=== PATIENT | female | born 1940 | race Caucasian/White ===

== ENCOUNTER 2017-03-30 17:45 | Inpatient (IN) | payer MEDICARE, MEDICAID ==
[~2017-03-30] VITALS: Ht 154.9 cm; Wt 46.3 kg
--- NOTE | 2017-03-30 18:02 | NUR ---
PT IS IN BED IN HALLWAY. NO AVAILABLE BEDS IN ROOMS. DR MCGEE NOTIFIED ABOUT PT's COMPLAINES.
[2017-03-30] MEDS ORDERED: IV NORMAL SALINE 1000 ML BAG IV ONE (18:15)
[2017-03-30] MEDS ORDERED: AMMO385C4 TP (18:42)
[2017-03-30] MEDS ORDERED: ALLO300T72 PO (18:42)
[2017-03-30] MEDS ORDERED: ATOR20TA PO (18:42)
[2017-03-30] MEDS ORDERED: [UNRECOGNIZED DRUG - CODE] PO (18:42)
[2017-03-30] MEDS ORDERED: TRAM50TA2 PO (18:42)
[2017-03-30] MEDS ORDERED: FURO-152 PO (18:42)
[2017-03-30] MEDS ORDERED: ASPI81TA31 PO (18:42)
[2017-03-30] MEDS ORDERED: APIX2.5T PO (18:42)
[2017-03-30] MEDS ORDERED: BISA10SU12 RC (18:42)
[2017-03-30] MEDS ORDERED: ACET325T53 PO (18:42)
[2017-03-30] MEDS ORDERED: MULT-213 PO (18:42)
[2017-03-30] MEDS ORDERED: HYDR-3326 PO (18:42)
[2017-03-30] MEDS ORDERED: DOCU100C36 PO (18:42)
[2017-03-30] MEDS ORDERED: ASCO500T9 PO (18:42)
[2017-03-30] MEDS ORDERED: ZINC220C8 PO (18:42)
[2017-03-30] MEDS ORDERED: NA P133E RC (18:42)
[2017-03-30] MEDS ORDERED: MAGN400O6 PO (18:42)
[2017-03-30] MEDS ORDERED: TOLT2TAB2 PO (18:42)
[2017-03-30] MEDS ORDERED: BLOO-140 IN (18:42)
[2017-03-30] MEDS ORDERED: LACT1TAB14 PO (18:42)
[2017-03-30] MEDS ORDERED: DILT120C11 PO (18:42)
[2017-03-30] MEDS ORDERED: PIPE2.259 IV (18:42)
[2017-03-30] MEDS ORDERED: INSU3INS6 SQ (18:42)
[2017-03-30] MEDS ORDERED: NYST15CR TP (18:42)
[2017-03-30] MEDS ORDERED: SENN-167 PO (18:42)
[2017-03-30] MEDS ORDERED: LEVO25TA9 PO (18:42)
--- NOTE | 2017-03-30 18:48 | NUR ---
DR MERRILL AT THE BEDSIDE FOR EVAL AND EXAM.
[2017-03-30 18:56] LABS: CARBON DIOXIDE 30 mmol/L (21-32); CHLORIDE 104 mmol/L (98-107); CREATININE 1.4 mg/dL (0.6-1.3); GLUCOSE 197 mg/dL (74-106); POTASSIUM 3.4 mmol/L (3.5-5.1); UREA NITROGEN, BLOOD 20 mg/dL (7-18)
[2017-03-30 18:57] LABS: BASOPHILS % (AUTO) 0.3 % (0.0-2.0); EOSINOPHILS % (AUTO) 0.5 % (0.0-7.0); MONOCYTES # (AUTO) 0.4 K/uL (2.0-10.0)
[2017-03-30 19:02] LABS: ALANINE AMINOTRANSFERASE 16 U/L (14-59); ALKALINE PHOSPHATASE 234 U/L (50-136); ASPARTATE AMINOTRANSFERASE 19 U/L (15-37); BILIRUBIN,DIRECT 0.3 mg/dL (0.0-0.2); BILIRUBIN,TOTAL 0.6 mg/dL (0.2-1.0); TOTAL PROTEIN, SERUM 5.1 g/dL (6.4-8.2)
[2017-03-30 19:04] LABS: HEMATOCRIT 21.1 % (31.2-41.9); LYMPHOCYTES # (AUTO) 0.7 K/uL (20.0-40.0); LYMPHOCYTES % (AUTO) 9.6 % (20.5-51.5); MEAN CORPUSCULAR HEMOGLOBIN 30.8 uug (24.7-32.8); MEAN CORPUSCULAR HGB CONC 33 g/dL (32.3-35.6); MEAN CORPUSCULAR VOLUME 93.2 fL (75.5-95.3); MONOCYTES % (AUTO) 5.4 % (0.0-11.0); NEUTROPHILS # (AUTO) 6.1 K/uL (1.8-8.9); NEUTROPHILS % (AUTO) 84.2 % (38.5-71.5); PLATELET COUNT (AUTO) 190 K/uL (179-408); WHITE BLOOD COUNT (AUTO) 7.3 K/uL (3.8-11.8)
[2017-03-30 19:11] LABS: RED BLOOD CELL COUNT(AUTO) 2.26 MIL/uL (3.63-4.92)
[2017-03-30 19:39] LABS: BAND % (MANUAL) 11 % (0-10); EOSINOPHILS % (MANUAL) 2 % (0-8); LYMPHOCYTES % (MANUAL) 8 % (20-40); MONOCYTES % (MANUAL) 5 % (2-10); NEUTROPHILS % (MANUAL) 74 % (42-75)
--- NOTE | 2017-03-30 20:55 | NUR ---
Marco paged for Dr. Spann
[2017-03-30] MEDS ORDERED: ONDANSETRON 4 MG/2 ML VIAL IV PRN (21:15)
[2017-03-30] MEDS ORDERED: MORPHINE SULFATE 2 MG/1 ML DISP.SYRIN IV PRN (21:15)
[2017-03-30] MEDS ORDERED: POTASSIUM CHLORIDE 20 MEQ in IV D5/ 0.9% NACL 1,000 ML IV PRN (21:15)
--- NOTE | 2017-03-30 23:00 | NUR ---
Pt. admitted to TELE , under care of Dr. DUMONT Belongs List completed.
--- NOTE | 2017-03-30 23:30 | NUR ---
PATIENT ADMITTED IN TELE UNIT UNDER THE CARE OF DR DUMONT, INVENTORY LIST DONE.
[2017-03-31] VITALS (13 sets, daily range): BP systolic 95–108; BP diastolic 35–80
--- NOTE | 2017-03-31 | NUR ---
Pt is in no acute distress. Noted redness on upper inner thigh surgical site from pop bypass. with dominguez intact. Call light is within reach. Addendum: 04/01/17 at 0559 by DEISI DONALDSON RN wrong time
--- NOTE | 2017-03-31 06:00 | NUR ---
PATIENT ALERT ORIENTED, ABLE TO MAKE NEEDS KNOWN, ABLE TO GIVE CONSENT FOR EGD AND BLOOD TRANSFUSION, RHYTHM SINUS RHYTHM, HAD TWO BM WITH BLOOD IN MODERATE AMOUNT MD AWARE OF THE CONDITION. CONT TO MONITOR NO SOB NO CHEST PAIN NOTED.
--- NOTE | 2017-03-31 07:02 | NUR ---
PATIENT STARTED BLOOD TRANSFUSION ORDER BY DR HANNAH, WITH NO ADVERSE REACTION NOTED. ENDORSED TO NEXT SHIFT.
[2017-03-31 07:06] LABS: BASOPHILS % (AUTO) 0.3 % (0.0-2.0); EOSINOPHILS # (AUTO) 0.1 K/uL (0.0-0.7); EOSINOPHILS % (AUTO) 1.3 % (0.0-7.0); LYMPHOCYTES # (AUTO) 1.1 K/uL (20.0-40.0); LYMPHOCYTES % (AUTO) 19.7 % (20.5-51.5); MEAN CORPUSCULAR HEMOGLOBIN 30.3 uug (24.7-32.8); MEAN CORPUSCULAR HGB CONC 32 g/dL (32.3-35.6); MEAN CORPUSCULAR VOLUME 93.5 fL (75.5-95.3); MONOCYTES # (AUTO) 0.4 K/uL (2.0-10.0); MONOCYTES % (AUTO) 6.8 % (0.0-11.0); NEUTROPHILS # (AUTO) 3.9 K/uL (1.8-8.9); NEUTROPHILS % (AUTO) 71.9 % (38.5-71.5); PLATELET COUNT (AUTO) 175 K/uL (179-408)
[2017-03-31 07:10] LABS: IRON, SERUM 26 ug/dL (50-175)
[2017-03-31 07:12] LABS: ALANINE AMINOTRANSFERASE 14 U/L (14-59); ALKALINE PHOSPHATASE 182 U/L (50-136); ASPARTATE AMINOTRANSFERASE 14 U/L (15-37); BILIRUBIN,TOTAL 0.5 mg/dL (0.2-1.0); CARBON DIOXIDE 29 mmol/L (21-32); CHLORIDE 109 mmol/L (98-107); CHOLESTEROL 82 mg/dL (<200); CREATININE 1.2 mg/dL (0.6-1.3); GLUCOSE 181 mg/dL (74-106); HDL CHOLESTEROL 42 mg/dL (40-60); MAGNESIUM 1.6 mg/dL (1.8-2.4); PHOSPHOROUS 2.2 mg/dL (2.5-4.9); POTASSIUM 3.2 mmol/L (3.5-5.1); TOTAL PROTEIN, SERUM 4.6 g/dL (6.4-8.2); TRIGLYCERIDES 56 MG/DL (30-150); UREA NITROGEN, BLOOD 19 mg/dL (7-18)
[2017-03-31 07:27] LABS: THYROID STIMULATING HORMONE 12.627 mIU/mL (0.358-3.740)
[2017-03-31 07:28] LABS: WHITE BLOOD COUNT (AUTO) 5.4 K/uL (3.8-11.8)
[2017-03-31 07:30] LABS: HEMOGLOBIN 5.9 g/dL (10.9-14.3)
[2017-03-31 07:31] LABS: HEMATOCRIT 18.2 % (31.2-41.9)
[2017-03-31 07:32] LABS: RED BLOOD CELL COUNT(AUTO) 1.94 MIL/uL (3.63-4.92)
[2017-03-31] MEDS ORDERED: MORPHINE SULFATE 4 MG/1 ML DISP.SYRIN IV PRN (07:45)
--- NOTE | 2017-03-31 08:41 | NUR ---
client has been taken down for procedure
[2017-03-31] MEDS ORDERED: PANTOPRAZOLE SODIUM 40 MG VIAL IV SCH (09:00)
--- NOTE | 2017-03-31 09:20 | NUR ---
this is around the time the blood trasfusion should have ended. client was downstairs for procedure
[2017-03-31] MEDS ORDERED: METOPROLOL TARTRATE 5 MG/5 ML VIAL IVP ONE (09:39)
[2017-03-31] MEDS ORDERED: FUROSEMIDE 20 MG/2 ML VIAL IV ONE (10:45)
[2017-03-31] MEDS ORDERED: AMIODARONE HCL IV 900 MG in IV DEXTROSE 5% 482 ML IV PRN (10:45)
[2017-03-31] MEDS ORDERED: AMIODARONE HCL IV 150 MG in IV DEXTROSE 5% 100 ML IV ONE (10:45)
[2017-03-31 10:51] LABS: EOSINOPHILS % (MANUAL) 2 % (0-8); LYMPHOCYTES % (MANUAL) 21 % (20-40); MONOCYTES % (MANUAL) 7 % (2-10); NEUTROPHILS % (MANUAL) 70 % (42-75)
[2017-03-31] MEDS: DILTIAZEM HCL CD 120 MG CAP.SR.24H PO SCH (11:40)
[2017-03-31] MEDS ORDERED: NEUTRA PHOS PACKET PO ONE (15:15)
[2017-03-31] MEDS ORDERED: POTASSIUM CHLORIDE 20 MEQ TAB.PRT.SR PO ONE (16:30)
[2017-03-31 19:38] LABS: *BILIRUBIN,URIN NEGATIVE (NEGATIVE); *BLOOD, URINE Trace-lysed (NEGATIVE); *CLARITY,URINE CLEAR (CLEAR); *COLOR,URINE YELLOW (YELLOW); *KETONES,URINE NEGATIVE (NEGATIVE); *PROTEIN,URINE TRACE (NEGATIVE); *UROBILINOGEN,URINE 0.2 E.U./dl (NORMAL); LEUKOCYTE ESTERASE ,URINE TRACE (NEGATIVE); NITRITE, URINE NEGATIVE (NEGATIVE); PH,URINE 5.5 (5.0-8.0); UGLUCOSE NEGATIVE (NEGATIVE)
[2017-03-31 19:41] LABS: BACTERIA,URINE FEW /HPF (NONE SEEN); RBC,URINE 0-3 /HPF (0-3); SQUAMOUS EPITHELIAL CELL,UR FEW /HPF (NONE SEEN)
--- NOTE | 2017-03-31 20:00 | NUR ---
Pt is in no acute distress. Noted redness on upper inner thigh surgical site from pop bypass. with dominguez intact. Call light is within reach. Addendum: 04/01/17 at 0600 by DEISI DONALDSON RN offered to cover surgical site with gauze - pt refused.
[2017-03-31] MEDS: PANTOPRAZOLE SODIUM 40 MG VIAL IV SCH (20:10)
--- NOTE | 2017-03-31 20:15 | NUR ---
2ND BAG OF BLOOD INFUSED, TOLERATED WELL. CLIENT IN IS NO APPARENT SIGNS AND SYMPTOMS OF SOB, DISTRESS OR DISCOMFORT, STATES NO PAIN, WISHES TO BE DISCHARGE CLOSER TO HOME. AFTER PROCEDURE CLIENT WAS PLACED ON REG DIET AFTER PROCEDURE, TOLERATED FOOD WELL. STOOL AND URINE COLLECT AND SENT DOWN TO LAB.. CLIENT HAS BE COMPLIANT THROUGHOUT THE DAY. HAS GOOD KNOWLEDGE ABOUT HER PROCEDURE AND MEDICATIONS. DAUGHTER CALLED AROUND 3PM AND A QUICK STATUES WAS GIVEN
[2017-03-31] MEDS: MAGNESIUM SULFATE/D5W 100 ML IV SCH ×2 (20:19→22:52)
[2017-03-31] MEDS ORDERED: IV NORMAL SALINE 1000 ML BAG IV ONE (22:04)
[2017-03-31] MEDS ORDERED: PROPOFOL 200 MG/20 ML BOTTLE IV ONE (22:04)
[2017-03-31] MEDS ORDERED: EPHEDRINE SULFATE 50 MG/ML AMPUL MC ONE (22:04)
[2017-03-31] MEDS ORDERED: LIDOCAINE HCL 1% 20 ML VIAL MC ONE (22:04)
[2017-03-31] MEDS: ACETAMINOPHEN 325 MG TABLET PO PRN (22:51)
[2017-04-01 04:00] VITALS: BP 99/46
--- NOTE | 2017-04-01 06:00 | NUR ---
Pt is in no acute distress. Call light is within reach. pt slept throughout the night comfortably.
--- NOTE | 2017-04-01 07:48 | NUR ---
CLIENT IS ASLEEP IN BED WITH NO APPARENT SIGNS AND SYMPTOMS OF SOB, PAIN, DISTRESS OR DISCOMFORT. SLEEPING IN A SUPINE POSITION WITH THE HOB AT 30 DEGREES TURNED TO THE RIGHT SIDE. BED AT LOWEST POSITION FOR SAFETY AND CALLING LIGHT WITHIN REACH. CLIENT NOTED WITH A DRY COUGH
[2017-04-01 07:56] LABS: BASOPHILS % (AUTO) 0.2 % (0.0-2.0); EOSINOPHILS # (AUTO) 0.1 K/uL (0.0-0.7); EOSINOPHILS % (AUTO) 1.1 % (0.0-7.0); LYMPHOCYTES # (AUTO) 1.2 K/uL (20.0-40.0); LYMPHOCYTES % (AUTO) 13.6 % (20.5-51.5); MEAN CORPUSCULAR HEMOGLOBIN 29.9 uug (24.7-32.8); MEAN CORPUSCULAR HGB CONC 33 g/dL (32.3-35.6); MEAN CORPUSCULAR VOLUME 89.7 fL (75.5-95.3); MONOCYTES # (AUTO) 0.6 K/uL (2.0-10.0); MONOCYTES % (AUTO) 7.3 % (0.0-11.0); NEUTROPHILS # (AUTO) 6.7 K/uL (1.8-8.9); NEUTROPHILS % (AUTO) 77.8 % (38.5-71.5); PLATELET COUNT (AUTO) 170 K/uL (179-408)
[2017-04-01 08:15] LABS: ALANINE AMINOTRANSFERASE 13 U/L (14-59); ALKALINE PHOSPHATASE 196 U/L (50-136); ASPARTATE AMINOTRANSFERASE 14 U/L (15-37); BILIRUBIN,TOTAL 1.2 mg/dL (0.2-1.0); CARBON DIOXIDE 25 mmol/L (21-32); CHLORIDE 106 mmol/L (98-107); CREATININE 1.5 mg/dL (0.6-1.3); GLUCOSE 196 mg/dL (74-106); MAGNESIUM 2.2 mg/dL (1.8-2.4); PHOSPHOROUS 2.6 mg/dL (2.5-4.9); POTASSIUM 4.4 mmol/L (3.5-5.1); TOTAL PROTEIN, SERUM 5.3 g/dL (6.4-8.2); UREA NITROGEN, BLOOD 23 mg/dL (7-18)
[2017-04-01 08:59] LABS: HEMATOCRIT 27.8 % (31.2-41.9); HEMOGLOBIN 9.3 g/dL (10.9-14.3); WHITE BLOOD COUNT (AUTO) 8.6 K/uL (3.8-11.8)
[2017-04-01] MEDS ORDERED: FUROSEMIDE 40 MG/4 ML VIAL IV ONE (09:30)
[2017-04-01 09:55] LABS: *OCCULT BLOOD STOOL POSITIVE (NEGATIVE)
[2017-04-01] MEDS: DILTIAZEM HCL CD 120 MG CAP.SR.24H PO SCH (10:02)
[2017-04-01] MEDS: PANTOPRAZOLE SODIUM 40 MG VIAL IV SCH ×2 (10:02→17:31)
--- NOTE | 2017-04-01 10:41 | NUR ---
ORDERS TO DC TELE
[2017-04-01 11:18] VITALS: BP 121/46
[2017-04-01 15:04] VITALS: BP 125/46
[2017-04-01] MEDS: GUAIFENESIN/DEXTROMETHORPHAN 5 ML UDC PO PRN ×2 (15:38→20:43)
[2017-04-01 19:00] VITALS: BP 116/49
--- NOTE | 2017-04-01 19:20 | NUR ---
RECEIVED PATIENT IN BED, NO SOB NO CHEST PAIN NOTED, CONTINENT OF BOWEL AND BLADDER, ASSISTED WITH TOILETING, COMPLAIN OF COUGH AND PAIN ON LEFT LEG INCISION, WILL MEDICATE FOR COUGH AND PAIN. V.S STABLE.
--- NOTE | 2017-04-01 19:36 | NUR ---
CLIENT COMPLIANT WITH ALL CARE. COUGH NOTED THROUGHOUT THE DAY WITH ORDERS FOR ROBITUSSIN. NEW IV STARTED ON THE LEFT HAND. NO APPARENT SIGNS AND SYMPTOMS OF DISTRESS. BED AT LOWEST POSITION FOR SAFETY AND CALL LIGHT WITHIN REACH FOR ASSISTANCE
[2017-04-01] MEDS: ACETAMINOPHEN 325 MG TABLET PO PRN (20:43)
[2017-04-02 04:00] VITALS: BP 120/58
--- NOTE | 2017-04-02 06:10 | NUR ---
PATIENT SLEPT MOST OF THE NIGHT, NO SOB NO CHEST PAIN, HAD ONE BROWNISH RED COLOR BM ON THIS SHIFT, NO FURTHER COMPLAIN OF PAIN NOR COUGHING NOTED, CALL LIGHT WITHIN REACH, LEFT INNER THIGH INCISION WITH VANESSA INTACT, DRY NO DRAINAGE NOTED, CONT TO MONITOR.
--- NOTE | 2017-04-02 07:33 | NUR ---
RECEIVED CLIENT IN BED ASLEEP IN BED, LAYING SUPINE TURN SLIGHTLY TO THE RIGHT SIDE. NO APPARENT SIGNS AND SYMPTOMS OF PAIN, DISTRESS OR DISCOMFORT. BED AT LOWEST POSITION FOR SAFETY AND CALL LIGHT WITHIN REACH FOR ASSISTANCE. NI IV FLUIDS RUNNING AT THIS TIME
[2017-04-02] MEDS: GUAIFENESIN/DEXTROMETHORPHAN 5 ML UDC PO PRN ×2 (09:10→17:27)
[2017-04-02] MEDS: PANTOPRAZOLE SODIUM 40 MG VIAL IV SCH ×2 (09:10→17:27)
[2017-04-02 09:12] LABS: CARBON DIOXIDE 28 mmol/L (21-32); CHLORIDE 105 mmol/L (98-107); CREATININE 1.4 mg/dL (0.6-1.3); GLUCOSE 201 mg/dL (74-106); MAGNESIUM 2.1 mg/dL (1.8-2.4); PHOSPHOROUS 2.3 mg/dL (2.5-4.9); POTASSIUM 4.6 mmol/L (3.5-5.1); UREA NITROGEN, BLOOD 19 mg/dL (7-18)
[2017-04-02] MEDS: DILTIAZEM HCL CD 120 MG CAP.SR.24H PO SCH (09:13)
[2017-04-02 10:01] LABS: BASOPHILS % (AUTO) 0.4 % (0.0-2.0); EOSINOPHILS % (AUTO) 0.1 % (0.0-7.0); HEMOGLOBIN 9.6 g/dL (10.9-14.3); LYMPHOCYTES # (AUTO) 0.3 K/uL (20.0-40.0); LYMPHOCYTES % (AUTO) 3.5 % (20.5-51.5); MEAN CORPUSCULAR HEMOGLOBIN 31.1 uug (24.7-32.8); MEAN CORPUSCULAR HGB CONC 34 g/dL (32.3-35.6); MEAN CORPUSCULAR VOLUME 91.2 fL (75.5-95.3); MONOCYTES # (AUTO) 0.4 K/uL (2.0-10.0); MONOCYTES % (AUTO) 3.8 % (0.0-11.0); NEUTROPHILS # (AUTO) 9.1 K/uL (1.8-8.9); NEUTROPHILS % (AUTO) 92.2 % (38.5-71.5); PLATELET COUNT (AUTO) 164 K/uL (179-408); RED BLOOD CELL COUNT(AUTO) 3.07 MIL/uL (3.63-4.92); WHITE BLOOD COUNT (AUTO) 9.9 K/uL (3.8-11.8)
[2017-04-02] MEDS ORDERED: NEUTRA PHOS PACKET PO ONE (11:15)
[2017-04-02 11:35] VITALS: BP 125/53
[2017-04-02 13:21] LABS: BAND % (MANUAL) 4 % (0-10); LYMPHOCYTES % (MANUAL) 3 % (20-40); MONOCYTES % (MANUAL) 6 % (2-10); NEUTROPHILS % (MANUAL) 87 % (42-75)
[2017-04-02 15:51] VITALS: BP 104/44
[2017-04-02] MEDS ORDERED: BISACODYL 10 MG SUPP.RECT RC PRN (17:15)
[2017-04-02] MEDS: ACETAMINOPHEN 325 MG TABLET PO PRN (17:26)
[2017-04-02] MEDS ORDERED: FUROSEMIDE 20 MG/2 ML VIAL IV ONE (17:30)
[2017-04-02] MEDS: CEFTRIAXONE 1 G in IV DEXTROSE 5% 50 ML IV SCH (18:40)
[2017-04-02 19:00] VITALS: BP 110/29
[2017-04-02] MEDS ORDERED: FUROSEMIDE 40 MG/4 ML VIAL IV ONE (19:45)
--- NOTE | 2017-04-02 19:45 | NUR ---
NOTE TO PHARMACY: Lasix given; charted elsewhere in eMar.
--- NOTE | 2017-04-02 19:49 | NUR ---
CLIENT IS COMPLIANT WITH AL CARE NURSING INTERVENTION. CLIENT IS COMPLIANT WILL ALL MEDICATION ADMINISTRATION. SLEPT MOST OF THE DAY. AMBULATORY WITH WALK. ANTIBIOTICS START IN THE AFTERNOON. BED AT LOWEST POSITION FOR SAFETY, CALL LIGHT WITHIN REACH FOR ASSISTANCE
[2017-04-02] MEDS: LACTOBACILLUS RHAMNOSUS GG 1 EACH CAPSULE PO SCH (21:00)
[2017-04-02] MEDS ORDERED: FUROSEMIDE 40 MG/4 ML VIAL ONE (22:55)
[2017-04-03 00:01] VITALS: BP 114/56
[2017-04-03 04:00] VITALS: BP 114/56
[2017-04-03] MEDS: LEVOTHYROXINE SODIUM 25 MCG TABLET PO SCH (07:00)
[2017-04-03 07:13] LABS: BASOPHILS % (AUTO) 0.2 % (0.0-2.0); HEMOGLOBIN 9.9 g/dL (10.9-14.3); LYMPHOCYTES # (AUTO) 0.5 K/uL (20.0-40.0); LYMPHOCYTES % (AUTO) 8.2 % (20.5-51.5); MEAN CORPUSCULAR HEMOGLOBIN 30.3 uug (24.7-32.8); MEAN CORPUSCULAR HGB CONC 33 g/dL (32.3-35.6); MEAN CORPUSCULAR VOLUME 91.7 fL (75.5-95.3); MONOCYTES # (AUTO) 0.5 K/uL (2.0-10.0); MONOCYTES % (AUTO) 7.7 % (0.0-11.0); NEUTROPHILS % (AUTO) 83.9 % (38.5-71.5); PLATELET COUNT (AUTO) 154 K/uL (179-408); RED BLOOD CELL COUNT(AUTO) 3.27 MIL/uL (3.63-4.92)
[2017-04-03 07:45] LABS: ALANINE AMINOTRANSFERASE 15 U/L (14-59); ALKALINE PHOSPHATASE 255 U/L (50-136); ASPARTATE AMINOTRANSFERASE 28 U/L (15-37); BILIRUBIN,TOTAL 0.8 mg/dL (0.2-1.0); CARBON DIOXIDE 25 mmol/L (21-32); CHLORIDE 105 mmol/L (98-107); CREATININE 1.4 mg/dL (0.6-1.3); GLUCOSE 202 mg/dL (74-106); POTASSIUM 3.8 mmol/L (3.5-5.1); TOTAL PROTEIN, SERUM 5.4 g/dL (6.4-8.2); UREA NITROGEN, BLOOD 22 mg/dL (7-18)
--- NOTE | 2017-04-03 08:00 | NUR ---
RECEIVED AWAKE ALERT DENIES PAIN AT THIS TIME, STAPPLES INTACT TO LEFT LEG FORMER SURGERY INCISION
[2017-04-03 08:46] LABS: MAGNESIUM 1.9 mg/dL (1.8-2.4)
[2017-04-03] MEDS ORDERED: LACTOBACILLUS RHAMNOSUS GG PO SCH (09:00)
[2017-04-03] MEDS: LACTOBACILLUS RHAMNOSUS GG 1 EACH CAPSULE PO SCH ×2 (09:00→20:18)
[2017-04-03] MEDS: ZINC SULFATE 220 MG CAPSULE PO SCH (09:32)
[2017-04-03] MEDS: TOLTERODINE 2 MG TABLET PO SCH (09:33)
[2017-04-03] MEDS: DILTIAZEM HCL CD 120 MG CAP.SR.24H PO SCH (09:42)
[2017-04-03] MEDS: PANTOPRAZOLE SODIUM 40 MG VIAL IV SCH (09:46)
[2017-04-03 13:01] VITALS: BP 120/56
--- NOTE | 2017-04-03 14:00 | NUR ---
DR FISHER VISITING
[2017-04-03] MEDS: GUAIFENESIN/DEXTROMETHORPHAN 5 ML UDC PO PRN (14:46)
--- NOTE | 2017-04-03 14:52 | NUR ---
COUGH MED GIVEN FOR LOOSE NON PRODUCTIVE COUGH
[2017-04-03 15:45] VITALS: BP 120/78
[2017-04-03] MEDS: PANTOPRAZOLE SODIUM 40 MG TABLET.DR PO SCH (16:57)
[2017-04-03] MEDS: CEFTRIAXONE 1 G in IV DEXTROSE 5% 50 ML IV SCH (16:57)
--- NOTE | 2017-04-03 18:31 | NUR ---
STABLE ON Q1 HOUR ROUNDS ALL NEEDS MET
[2017-04-03 19:00] VITALS: BP 116/64
--- NOTE | 2017-04-03 19:46 | NUR ---
RECEIVED SHIFT REPORT FROM DAY SHIFT NURSE. PATIENT A/OX3. STABLE CONDITION, NO S/S OF DISTRESS. BED IN LOCKED/LOW POSITION, SIDE RAILS UP X2, BED ALARM ON, CALL LIGHT WITHIN REACH. SAFETY/COMFORT WILL BE PROVIDED.
[2017-04-03] MEDS: ACETAMINOPHEN 325 MG TABLET PO PRN (20:30)
[2017-04-04 04:00] VITALS: BP 113/48
[2017-04-04] MEDS: PANTOPRAZOLE SODIUM 40 MG TABLET.DR PO SCH ×2 (06:22→16:49)
[2017-04-04] MEDS: LEVOTHYROXINE SODIUM 25 MCG TABLET PO SCH (06:23)
[2017-04-04] MEDS: ACETAMINOPHEN 325 MG TABLET PO PRN (06:49)
[2017-04-04 06:53] LABS: BASOPHILS % (AUTO) 0.5 % (0.0-2.0); EOSINOPHILS % (AUTO) 0.4 % (0.0-7.0); HEMATOCRIT 30.3 % (31.2-41.9); HEMOGLOBIN 9.9 g/dL (10.9-14.3); LYMPHOCYTES # (AUTO) 0.8 K/uL (20.0-40.0); LYMPHOCYTES % (AUTO) 16.1 % (20.5-51.5); MEAN CORPUSCULAR HEMOGLOBIN 30.2 uug (24.7-32.8); MEAN CORPUSCULAR HGB CONC 33 g/dL (32.3-35.6); MEAN CORPUSCULAR VOLUME 92.2 fL (75.5-95.3); MONOCYTES # (AUTO) 0.5 K/uL (2.0-10.0); MONOCYTES % (AUTO) 11.5 % (0.0-11.0); NEUTROPHILS # (AUTO) 3.3 K/uL (1.8-8.9); NEUTROPHILS % (AUTO) 71.5 % (38.5-71.5); PLATELET COUNT (AUTO) 150 K/uL (179-408); RED BLOOD CELL COUNT(AUTO) 3.28 MIL/uL (3.63-4.92); WHITE BLOOD COUNT (AUTO) 4.7 K/uL (3.8-11.8)
[2017-04-04 07:05] LABS: CARBON DIOXIDE 27 mmol/L (21-32); CHLORIDE 102 mmol/L (98-107); CREATININE 1.4 mg/dL (0.6-1.3); GLUCOSE 193 mg/dL (74-106); MAGNESIUM 1.9 mg/dL (1.8-2.4); PHOSPHOROUS 2.8 mg/dL (2.5-4.9); POTASSIUM 3.9 mmol/L (3.5-5.1); UREA NITROGEN, BLOOD 24 mg/dL (7-18)
--- NOTE | 2017-04-04 08:00 | NUR ---
AWAKE ALERT COOPERATE WELL NO PAIN N OR SOB ON FALL /ASPIRATION PRECAUTION BED ALARM ON AND CALL LIGHT IN REACH
[2017-04-04] MEDS: LACTOBACILLUS RHAMNOSUS GG 1 EACH CAPSULE PO SCH ×2 (08:54→21:12)
[2017-04-04] MEDS: DILTIAZEM HCL CD 120 MG CAP.SR.24H PO SCH (08:55)
[2017-04-04] MEDS: ZINC SULFATE 220 MG CAPSULE PO SCH (08:55)
[2017-04-04] MEDS: GUAIFENESIN/DEXTROMETHORPHAN 5 ML UDC PO PRN ×2 (08:55→17:16)
[2017-04-04] MEDS: TOLTERODINE 2 MG TABLET PO SCH (08:55)
[2017-04-04 11:36] VITALS: BP 112/45
[2017-04-04 15:24] VITALS: BP 105/54
[2017-04-04] MEDS ORDERED: Z GUARD REMEDY PASTE 57 GM TUBE TOP PRN (16:15)
[2017-04-04] MEDS: CEFTRIAXONE 1 G in IV DEXTROSE 5% 50 ML IV SCH (16:49)
--- NOTE | 2017-04-04 17:30 | NUR ---
D/C INSTRUCTION REGARDING F/U WITH OWN PMD CONTINUE HOME MEDICINE AT [facility] AND EDUCATION PK GIVEN ,VERBALIZES UNDERSTAND AND SIGND D/C SHEET HL WAS DISCONTINUE PRIOR D/C HOME TODAY
--- NOTE | 2017-04-04 18:00 | NUR ---
STABLE HEMODYNAMIC STATUS PAIN UNDER CONTROL NO ACUTE DISTRESS SAFETY MEASURE PROVIDED CALL LIGHT IN REACH AND BED ALARM ON
[2017-04-04 20:00] VITALS: BP 122/56
--- NOTE | 2017-04-04 20:19 | NUR ---
RECEIVED SHIFT REPORT FROM DAY SHIFT NURSE. PATIENT IS PENDING DISCHARGE BACK [facility], [place]. STABLE CONDITION, NO S/S OF DISTRESS.
[2017-04-05 04:41] VITALS: BP 92/48
== END 2017-04-04 22:05 | DRG 377 ==
LOC: ER 17:47 → TELE 23:08 → TELE-TD 03-31 10:36 → TELE 03-31 11:07 → MED 04-01 11:14
PROVIDERS: ADMIT Internal Medicine; ATTEND Internal Medicine
PROC: 0DB78ZX Excision of Stomach, Pylorus, Via Natural or Artificial Opening Endoscopic, Diagnostic (ICD-10-PCS; 2017-03-31)
PROC: 30233N1 Transfusion of Nonautologous Red Blood Cells into Peripheral Vein, Percutaneous Approach (ICD-10-PCS; 2017-03-31)
PROC: 0DB68ZX Excision of Stomach, Via Natural or Artificial Opening Endoscopic, Diagnostic (ICD-10-PCS; principal; 2017-03-31 09:12)
DX: K29.71 Gastritis, unspecified, with bleeding (principal); E43 Unspecified severe protein-calorie malnutrition; I21.A1 Myocardial infarction type 2; N17.0 Acute kidney failure with tubular necrosis; I50.33 Acute on chronic diastolic (congestive) heart failure; E11.22 Type 2 diabetes mellitus with diabetic chronic kidney disease; D69.6 Thrombocytopenia, unspecified; E11.51 Type 2 diabetes mellitus with diabetic peripheral angiopathy without gangrene; D62 Acute posthemorrhagic anemia; I13.0 Hypertensive heart and chronic kidney disease with heart failure and stage 1 through stage 4 chronic kidney disease, or unspecified chronic kidney disease; I48.92 Unspecified atrial flutter; N39.0 Urinary tract infection, site not specified; Z68.1 Body mass index [BMI] 19.9 or less, adult; I48.2 Chronic atrial fibrillation; D50.0 Iron deficiency anemia secondary to blood loss (chronic); E03.9 Hypothyroidism, unspecified; E78.5 Hyperlipidemia, unspecified; E87.6 Hypokalemia; I25.2 Old myocardial infarction; K21.0 Gastro-esophageal reflux disease with esophagitis; R62.7 Adult failure to thrive; N18.9 Chronic kidney disease, unspecified; M19.90 Unspecified osteoarthritis, unspecified site; M10.9 Gout, unspecified; Z79.01 Long term (current) use of anticoagulants; E11.9 Type 2 diabetes mellitus without complications; K44.9 Diaphragmatic hernia without obstruction or gangrene; Z79.4 Long term (current) use of insulin; Z98.62 Peripheral vascular angioplasty status; K57.10 Diverticulosis of small intestine without perforation or abscess without bleeding; Z79.82 Long term (current) use of aspirin
CPT/HCPCS: 36415; 70030-TC; 71010; 83550; 83735; 84100; 84443; 85025; 85730; 86850; 86900; 86901; 86920; 87086; 93005; 93307; 97116; 97530; A4217; A4663; C9113; J0696; J1940; J2270; J3475; J3480; J3490; J7030; J7042; J7050; J7060; P9016-BL; P9021